=== PATIENT | male | born 1975 | race Caucasian/White ===

== ENCOUNTER 2017-11-15 19:38 | Emergency (ER) | payer BC ==
[2017-11-15 19:59] VITALS: BP 135/82
--- NOTE | 2017-11-15 21:40 | EDM.PDOC ---
ED HPI GENERAL MEDICAL PROBLEM - General Chief Complaint: Eye Problems Stated Complaint: EYE ISSUES Time Seen by Provider: 11/15/17 20:06 Source of Information: Reports: Patient, Family () History Limitations: Reports: No Limitations - History of Present Illness INITIAL COMMENTS - FREE TEXT/NARRATIVE: The patient states that on Thursday morning, 11/13/27, he noticed some irritation to his right eye. He did not think much of it, and went to work, however, his right eye became increasingly erythematous while at work. Before the end of his workday, his left eye started to become red, as well. He states that his sons were both diagnosed with "pinkeye", and prescribed trimethoprim/polymyxin eyedrops. He states that he started using his son's antibiotic eyedrops, 1 drop in each eye every 4-5 hours on Thursday afternoon. He was then seen at the [facility] yesterday, 11/14/2017, where he was diagnosed with "pinkeye", and also prescribed trimethoprim/ polymyxin eyedrops. He states that his eyes are a bit itchy and irritated, but he denies pain, per se. He denies having a foreign body sensation. He denies visual changes, such as blurry vision, but he noticed that the headlights appear to be a little bit starry on [facility] way [facility]. No recent fever. No prior similar symptoms. The patient's PCP is Dr. Rivas. Bilateral Eye Pain Score (Numeric/FACES): 3 - Related Data Allergies Allergy/AdvReac Type Severity Reaction Status Date / Time No Known Allergies Allergy Verified 09/03/14 09:19 Home Meds: Home Meds Aspirin [Halfprin] 81 mg PO DAILY 02/19/14 [History] Lisinopril [Prinivil] 10 mg PO DAILY 03/02/14 [History] Metoprolol Succinate 25 mg PO DAILY 03/02/14 [History] Hydrochlorothiazide 12.5 mg PO DAILY 03/17/14 [History] Past Medical History Cardiovascular History: Reports: Hypertension - Past Surgical History GI Surgical History: Reports: Appendectomy Musculoskeletal Surgical History: Reports: Other (See Below) Other Musculoskeletal Surgeries/Procedures:: Neck and Back Social & Family History - Tobacco Use Smoking Status *Q: Current Every Day Smoker Years of Tobacco use: 23 Packs/Tins Daily: 1 Used Tobacco, but Quit: No - Caffeine Use Caffeine Use: Reports: Soda - Alcohol Use Days Per Week of Alcohol Use: 0 - Recreational Drug Use Recreational Drug Use: No ED ROS GENERAL - Review of Systems Review Of Systems: ROS reveals no pertinent complaints other than HPI. ED EXAM GENERAL W FULL EYE - Physical Exam Exam: See Below Exam Limited By: No Limitations General Appearance: Alert, WD/WN, No Apparent Distress Eye Exam: Bilateral Eye: Conjunctival Injection (moderate), EOMI, PERRL, Other ( Severe subconjunctival hemorrhages) IOP (R) in mmH IOP (L) in mmH IOP Measure with (Equipment): Tonopen Eyelids: Bilateral: Ecchymosis (extends to the skin inferior to both eyes), Lid Everted for Exam Conjunctiva & Sclera: Bilateral: Subconjuctival Hemorrhage Cornea Exam: Bilateral: Normal Appearance Extraocular Movements: Bilateral: Intact Pupils: Normal Accommodation (Does not induce pain) Pupillary Size: Bilateral: 5 mm Pupillary Reaction: Bilateral: Brisk Anterior Chamber: Bilateral: Normal Appearance Ears: Normal External Exam, Normal Canal, Hearing Grossly Normal, Normal TMs Nose: Normal Inspection, Normal Mucosa, No Blood Throat/Mouth: Normal Inspection, Normal Lips, Normal Teeth, Normal Gums, Normal Oropharynx, Normal Voice, No Airway Compromise Head: Atraumatic, Normocephalic Neck: Normal Inspection, Supple, Non-Tender, Full Range of Motion. No: Lymphadenopathy (L), Lymphadenopathy (R) Skin Exam: Warm, Dry, Intact, Normal Color, No Rash. No: Ecchymosis (other than about both eyes), Petechiae Course - Vital Signs Last Recorded V/S: Last Vital Signs Temp 36.6 C 11/15/17 19:53 Pulse 119 H 11/15/17 19:53 Resp 16 11/15/17 19:53 BP 135/82 11/15/17 19:53 Pulse Ox 94 L 11/15/17 19:53 - Orders/Labs/Meds Labs: Laboratory Tests 11/15/17 11/15/17 11/15/17 Range/Units 21:45 21:45 21:45 WBC 13.16 H (4.23-9.07) K/mm3 RBC 4.55 L (4.63-6.08) M/mm3 Hgb 13.9 (13.7-17.5) gm/L Hct 42.6 (40.1-51.0) % MCV 93.6 H (79.0-92.2) fl MCH 30.5 (25.7-32.2) pg MCHC 32.6 (32.2-35.5) g/dl RDW Std Deviation 41.9 (35.1-43.9) fL Plt Count 253 (163-337) K/mm3 MPV 9.4 (9.4-12.3) fl Neutrophils % (Manual) 80 H (40-60) % Band Neutrophils % 0 (0-10) % Lymphocytes % (Manual) 11 L (20-40) % Atypical Lymphs % 0 % Monocytes % (Manual) 9 (2-10) % Eosinophils % (Manual) 0 L (0.8-7.0) % Basophils % (Manual) 0 L (0.2-1.2) Platelet Estimate Adequate Plt Morphology Comment Normal RBC Morph Comment Normal PT 10.8 (8.0-13.0) SECONDS INR 0.99 APTT 28 (22-36) SECONDS Sodium 140 (136-145) mEq/L Potassium 3.7 (3.5-5.1) mEq/L Chloride 104 (98-107) mEq/L Carbon Dioxide 28 (21-32) mEq/L Anion Gap 11.7 (5-15) BUN 21 H (7-18) mg/dL Creatinine 1.1 (0.7-1.3) mg/dL Est Cr Clr Drug Dosing 102.42 mL/min Estimated GFR (MDRD) > 60 (>60) mL/min BUN/Creatinine Ratio 19.1 H (14-18) Glucose 124 H (74-106) mg/dL Calcium 9.2 (8.5-10.1) mg/dL Total Bilirubin 0.7 (0.2-1.0) mg/dL AST 27 (15-37) U/L ALT 44 (16-63) U/L Alkaline Phosphatase 80 (46-116) U/L Total Protein 7.7 (6.4-8.2) g/dl Albumin 3.5 (3.4-5.0) g/dl Globulin 4.2 gm/dL Albumin/Globulin Ratio 0.8 L (1-2) - Re-Assessments/Exams Free Text/Narrative Re-Assessment/Exam: 11/15/17 21:38 The patient has substantial bilateral subconjunctival hemorrhages. There is no history of blunt trauma, or even coughing/sneezing, or Valsalva maneuver that precipitated this. A bleeding disorder or blood dyscrasia is possible. For today 's purposes, I have ordered a CBC, CMP, and coags, although the patient will likely require further evaluation for a coagulopathy. 11/15/17 23:[address] Kyle, Nuclear Powerplant Supervisor at [facility], at 23:50. He feels that the patient likely started with viral conjunctivitis, and developed hemorrhagic conjunctivitis. He is recommending that the patient discontinue the antibiotic eyedrops, but that the patient use artificial tears for any eye discomfort. He stated that this condition may take quite some time to resolve. He would like the patient to follow-up with an Nuclear Powerplant Supervisor this week. 11/16/17 00:04 The above was discussed with the patient and his . They expressed understanding, and stated that they will be able to see an Nuclear Powerplant Supervisor this week. Departure - Departure Time of Disposition: 00:06 Disposition: Home, Self-Care 01 Condition: Good Clinical Impression: Acute hemorrhagic conjunctivitis - Discharge Information Referrals: Wiliam Rivas MD [Primary Care Provider] - Forms: ED Department Discharge Additional Instructions: You were seen in the emergency room for severely red eyes. Workup in the ER included a CBC, CMP, and coags. All of your blood work was unremarkable. The pressure in both of your eyes was measured, and found to be within normal limits. Your case was discussed with Dr. Kyle, an Nuclear Powerplant Supervisor at [facility]. He feels that you likely started with viral conjunctivitis, then developed hemorrhagic conjunctivitis. He recommends that you DISCONTINUE the antibiotic eyedrops that you are currently using. He recommends that you use an [id number] eyedrop, such as Artificial Tears , as needed for eye discomfort. He recommend that you follow-up with an Nuclear Powerplant Supervisor this week. If any other problems, please do not hesitate to return to the ER.
== END 2017-11-16 00:15 | disposition home or self-care (01) ==
LOC: JD.ED 19:38
DX: B30.3 Acute epidemic hemorrhagic conjunctivitis (enteroviral) (principal); F17.210 Nicotine dependence, cigarettes, uncomplicated; I10 Essential (primary) hypertension; Z79.82 Long term (current) use of aspirin; Z79.899 Other long term (current) drug therapy
CPT/HCPCS: 36415; 80053; 85025; 85610; 85730; 99282; 99283

== ENCOUNTER 2025-08-09 07:31 | Emergency (ER) | payer BC ==
[2025-08-09] MEDS ORDERED: Sodium Chloride 0.9% 10 ML Syringe FLUSH PRN (08:00)
[2025-08-09 08:35] LABS: BASOPHILS ABSOLUTE AUTO 0.0 K/mm3 (0.0-0.2); BASOPHILS PERCENT AUTO 0.2 % (0.0-1.0); EOSINOPHILS ABSOLUTE AUTO 0.3 K/mm3 (0.0-0.4); EOSINOPHILS PERCENT AUTO 2.6 % (0.0-6.0); IMMATURE GRAN ABSOLUTE AUTO 0.04 K/mm3 (0.00-0.05); IMMATURE GRAN PERCENT AUTO 0.4 % (0.0-0.4); LYMPHOCYTES ABSOLUTE AUTO 0.8 K/mm3 (1.0-4.8); LYMPHOCYTES PERCENT AUTO 7.7 % (24.0-44.0); MEAN PLATELET VOLUME 9.3 fl (9.4-12.4); MONOCYTES ABSOLUTE AUTO 0.8 K/mm3 (0.0-0.8); MONOCYTES PERCENT AUTO 8.0 % (0.0-8.0); NEUTROPHILS ABSOLUTE AUTO 8.6 K/mm3 (1.8-7.7); NEUTROPHILS PERCENT AUTO 81.1 % (41.0-71.0); NRBC ABSOLUTE 0.00 (0.00-0.02); NRBC PERCENT 0.0 % (0.0-0.2); PLATELET COUNT,PLT 245 K/mm3 (150-400); RED BLOOD CELL COUNT 4.65 M/mm3 (4.52-5.90); WHITE BLOOD CELL COUNT,WBC 10.53 K/mm3 (3.9-11.3)
[2025-08-09] MEDS: Sodium Chloride 0.9% 10 ML Syringe FLUSH PRN (08:38)
[2025-08-09] MEDS: Iopamidol 612 MG/ML 100 ML Bottle IVPUSH ONE (08:39)
[2025-08-09] MEDS: Iopamidol 612 MG/ML 30 ML SDV IVPUSH ONE (08:39)
[2025-08-09] MEDS: Ondansetron 4 MG/2 ML SDV IVPUSH ONE (08:39)
[2025-08-09 08:53] LABS: A/G RATIO 0.7 (1-2); ALANINE AMINOTRANSFERASE,ALT 38.0 U/L (16-63); ASPARTATE AMNIOTRANSFERASE,AST 20.0 U/L (15-37); BILIRUBIN TOTAL 1.6 mg/dL (0.2-1.0); BLOOD UREA NITROGEN,BUN 15.0 mg/dL (7-18); CARBON DIOXIDE,CO2 25.0 mEq/L (21-32); CHLORIDE,CL 103.0 mEq/L (98-107); CREATININE 1.0 mg/dL (0.7-1.3); EST CRCL DRUG DOSING (CG) 103.28 mL/min; ESTIMATED GFR 91.0 mL/min (>60); GLUCOSE RANDOM 160.0 mg/dL (70-99); POTASSIUM,K 3.5 mEq/L (3.5-5.1); PROTEIN TOTAL,TP 8.1 g/dl (6.4-8.2); SODIUM,NA 139.0 mEq/L (136-145)
[2025-08-09 10:14] LABS: APPEARANCE,URINE CLEAR (Clear); GLUCOSE,URINE NEGATIVE (Negative); OCCULT BLOOD,URINE NEGATIVE (Negative)
[2025-08-09 10:30] LABS: SQUAMOUS EPITHELIAL CELLS,UR 0-5 /hpf (0-5)
[2025-08-09 11:50] VITALS: BP 110/68; PULSE 88
== END 2025-08-09 11:10 | disposition home or self-care (01) ==
LOC: JD.ED 07:31
DX: R10.11 Right upper quadrant pain (principal); I10 Essential (primary) hypertension; K21.9 Gastro-esophageal reflux disease without esophagitis; Z79.899 Other long term (current) drug therapy; Z79.82 Long term (current) use of aspirin; Z88.8 Allergy status to other drugs, medicaments and biological substances; Z90.49 Acquired absence of other specified parts of digestive tract
CPT/HCPCS: 36415; 74177; 80053; 81001; 83690; 85025; 96361; 96374; 96375; 99284; J2405; J7030; Q9967; 99283; J1171